=== PATIENT | female | born 1985 | race Caucasian/White ===

== ENCOUNTER 2017-06-21 15:52 | Emergency (ER) | payer SELFPAY ==
[~2017-06-21] VITALS: Ht 157.5 cm; Wt 59.0 kg
[2017-06-21 15:54] VITALS: Ht 157.5 cm; Wt 59.0 kg
[2017-06-21] MEDS ORDERED: NPH10OT RIGHT EAR (16:57)
--- NOTE | 2017-06-21 17:11 | ERD ---
ER Documentation Chief Complaint Date/Time DATE: 06/21/17 TIME: 17:08 Chief Complaint RIGHT EAR PAIN HPI 32 yr old female complaining of right ear pain. Pain started 15 days ago and has been persistent. Patient has not used medication for symptoms. Patient has had clear drainage and blood from right ear. Denies fever. Denies headache. Denies nasal congestion. ROS All systems reviewed and are negative except as per history of present illness. Medications Home Meds Active Scripts Neomycin/Polymyxin/Hydrocort* (Cortisporin* Otic) 10 Ml Susp, 4 DROP RIGHT EAR QID for 7 Days, EA Prov:JESSICA CAMERON PA-C 06/21/17 Allergies Allergies: Coded Allergies: No Known Allergy (Unverified , 06/21/17) PMhx/Soc Medical and Surgical Hx: pt denies Medical Hx, pt denies Surgical Hx Hx Alcohol Use: No Hx Substance Use: No Hx Tobacco Use: No Smoking Status: Never smoker Physical Exam Vitals Vital Signs Date Time Temp Pulse Resp B/P Pulse Ox O2 Delivery O2 Flow Rate FiO2 06/21/17 15:54 98.3 77 20 119/68 99 Physical Exam Const: [] Head: Atraumatic Eyes: Normal Conjunctiva ENT: Purulence noted in right external ear canal. No foreign body. No mastoid tenderness. Mild tragal tenderness. Neck: Full range of motion..~ No meningismus. Resp: Clear to auscultation bilaterally Cardio: Regular rate and rhythm, no murmurs Skin: No petechiae or rashes Procedures/MDM MDM: 32-year-old female coming in complaining of right ear pain 15 days. I will suspicion for mastoiditis as patient does not have pain over the mastoids. I have low suspicion for bacterial Sinus infection. Patient will be treated for otitis externa and recommended to follow up with primary doctor in 1-2 days. All questions answered at the time of discharge. Patient was given strict ER precautions. Patient understood and complied. Departure Diagnosis: Primary Impression: Right ear pain Condition: Stable Patient Instructions: Otitis Externa (Child) Referrals: COMM[facility]ITY [facility]IN[facility] YOU HAVE RECEIVED A MEDICAL SCREENING EXAM AND THE RESULTS INDICATE THAT YOU DO NOT HAVE A CONDITION THAT REQUIRES URGENT TREATMENT IN THE EMERGENCY DEPARTMENT. FURTHER EVALUATION AND TREATMENT OF YOUR CONDITION CAN WAIT UNTIL YOU ARE SEEN IN YOUR DOCTORS OFFICE WITHIN THE NEXT 1-2 DAYS. IT IS YOUR RESPONSIBILITY TO MAKE AN APPOINTMENT FOR FOLOW-UP CARE. IF YOU HAVE A PRIMARY DOCTOR --you should call your primary doctor and schedule an appointment IF YOU DO NOT HAVE A PRIMARY DOCTOR YOU CAN CALL OUR PHYSICIAN REFERRAL HOTLINE AT IF YOU CAN NOT AFFORD TO SEE A PHYSICIAN YOU CAN CHOSE FROM THE FOLLOWING [facility] [address] [facility] [address] [facility] [address] [facility] [address] [facility] [address] [facility]. [facility]. [address] Additional Instructions: FOLLOW UP WITH YOUR PRIMARY CARE PHYSICIAN TOMORROW.Return to this facility if you are not improving as expected. JESSICA CAMERON PA-C Jun 21, 2017 17:11
== END 2017-06-21 17:07 | disposition home or self-care (01) ==
LOC: FTE 15:52
DX: H92.01 Otalgia, right ear (principal)
CPT/HCPCS: 99283